=== PATIENT | male | born 1975 | race Caucasian/White ===

== ENCOUNTER 2018-07-31 13:29 | Emergency (ER) | payer SELFPAY ==
--- NOTE | 2018-07-31 13:39 | Emergency Department Record ---
History of Present Illness - General Chief Complaint: Laceration(s) Stated Complaint: LT HAND LAC Time Seen by Provider: 07/31/18 13:37 Source: Patient Mode of Arrival: Ambulatory Limitations: No limitations - History of Present Illness Initial Commments: The patient is here due to a L hand lac which occurred just under an hour ago. 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 The patient denies any numbness or tingling to the thumb or fingers and has normal ROM of his thumb. Onset/Timin -: Minutes(s) Place: Work Context: Accidental, Power tool use Associated Symptoms: None Treatments Prior to Arrival: Bandage - Related Data Hx Tetanus Toxoid Vaccination: Yes Year of Tetanus Vaccination: 2011 Patient Tetanus UTD (within 5 yrs): No Previous Rx's Medication Instructions Recorded Clindamycin HCl [Cleocin HCl] 300 mg PO QID #28 capsule 07/31/18 Allergies Allergy/AdvReac Type Severity Reaction Status Date / Time cephalexin monohydrate Allergy PT UNSURE Verified 07/31/15 18:39 [From Keflex] OF REACTION erythromycin base Allergy HIVES Verified 07/31/15 18:39 Penicillins Allergy PT UNSURE Verified 07/31/15 18:39 OF REACTION Sulfa (Sulfonamide Allergy PT UNSURE Verified 07/31/15 18:39 Antibiotics) OF REACTION Travel Screening - Travel/Exposure Within Last 30 Days Have you traveled within the last 30 days?: No Review of Systems Constitutional: Denies: Chills, Fever Eyes: Denies: Eye discharge ENT: Denies: Congestion Respiratory: Denies: Cough, Dyspnea Past Medical History - SOCIAL HISTORY Smoking Status: Never smoker - RESPIRATORY Hx Respiratory Disorders: No - CARDIOVASCULAR Hx Cardio Disorders: No - NEURO Hx Neuro Disorders: No - GI Hx GI Disorders: No - Hx Genitourinary Disorders: No - ENDOCRINE Hx Endocrine Disorders: No - MUSCULOSKELETAL Hx Musculoskeletal Disorders: No - PSYCH Hx Psych Problems: No - HEMATOLOGY/ONCOLOGY Hx Hematology/Oncology Disorders: No Family Medical History Any Significant Family History?: Yes Hx HTN: Grandparents Physical Exam - General General Appearance: Alert, Cooperative, No acute distress - Head Head exam: Atraumatic, Normocephalic - Eye Eye exam: Normal appearance, PERRL - Extremities Extremities exam: negative: Normal inspection (There is a 1.5 cm lac to the dorsal hand near the 1st MCP joint. The L 2nd finger and thumb are NVI with normal sensation and tendon function.) Image of Hand: 1 - Area of 1.5 cm lac. - Neurological Neurological exam: Normal gait. negative: Abnormal gait Course Vital Signs 07/31/18 13:33 Temperature 98.4 F Pulse Rate 80 Respiratory 18 Rate Blood Pressure 148/91 Pulse Ox 97 - Reevaluation(s) Reevaluation #1: Procedure note: the L hand lac was anesth. with 2 cc's Lido 1% with EPi and prepped with betadine. The wound was lavaged with sterile saline and explored. T here does appear to be a 30-40% L thumb extensor tendon lac. The wound was then minimally debrided and closed with 4 4.0 nylon sutures. 07/31/18 14:33 Reevaluation #2: I did discuss the lac with the patient and the need for F/U with Dr. Lopez due to the extensor tendon lac. The patient understands and will call for the appointment. 07/31/18 14:35 Medical Decision Making - Data Complexity MDM Data: X-Ray Ordered and/or Reviewed - Radiology Data Radiology results: Report reviewed (L hand: neg for fx or FB.) Disposition Disposition: Discharge Clinical Impression: Laceration of hand involving extensor tendon Qualifiers: Encounter type: initial encounter Laterality: left Qualified Code(s): S61.412A - Laceration without foreign body of left hand, initial encounter Disposition: Home, Self-Care Condition: (2) Stable Instructions: Laceration (ED) Additional Instructions: Keep dry 2 days and use Tylenol or Motrin for pain. Take the Clindamycin as directed and see Dr. Lopez for recheck later this week of next week. Have the sutures removed in 10 days. Prescriptions: Clindamycin HCl [Cleocin HCl] 300 mg PO QID #28 capsule Referrals: JAYANT LOPEZ M.D. [MEDICAL DOCTOR] - Forms: Patient Portal Access Time of Disposition: 14:38 Quality - Quality Measures Quality Measures: N/A - Blood Pressure Screening View Details: Yes Does Patient Have Any of the Following: No Blood Pressure Classification: Hypertensive Reading Systolic Measurement: 148 Diastolic Measurement: 91 Screening for High Blood Pressure: < First Hypertensive BP, F/U Documented > [[id number]] First Hypertensive Follow-up Interventions: Referral to alternative/primary care provider.
[2018-07-31] MEDS: Diph,Pert(Acell),Tet Vac 0.5 ML SYR IM ONE (14:33)
--- NOTE | 2018-08-01 19:28 | RADIOLOGY REPORT ---
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 TECHNIQUE: Three views of the left hand were obtained. COMPARISON: None. FINDINGS: The bones appear intact. There is no visible acute fracture or dislocation. There is no radiopaque foreign body. There is an old healed fracture of the fourth distal phalanx at the terminal tuft. IMPRESSION: NO ACUTE FRACTURE OR FOREIGN BODY. JOB NUMBER: [id number] MTDD
== END 2018-07-31 14:55 | disposition home or self-care (01) ==
LOC: ER 13:29
DX: S61.402A Unspecified open wound of left hand, initial encounter (principal); S61.412A Laceration without foreign body of left hand, initial encounter; W27.8XXA Contact with other nonpowered hand tool, initial encounter; Y92.69 Other specified industrial and construction area as the place of occurrence of the external cause; Y99.0 Civilian activity done for income or pay
CPT/HCPCS: 12001; 90715; 96372; 99283